=== PATIENT | female | born 1990 | race Caucasian/White ===

== ENCOUNTER 2017-06-14 11:19 | Emergency (ER) | payer SELFPAY ==
[~2017-06-14] VITALS: Ht 165.1 cm; Wt 65.0 kg
[2017-06-14 11:39] VITALS: BP 141/80
== END 2017-06-14 16:59 | disposition left against medical advice (07) ==
LOC: ER 12:08
DX: F41.9 Anxiety disorder, unspecified (principal); R42 Dizziness and giddiness; Z53.21 Procedure and treatment not carried out due to patient leaving prior to being seen by health care provider